=== PATIENT | female | born 1950 | race African-American/Black ===

== ENCOUNTER 2024-04-13 10:19 | Inpatient (IN) | payer OTHER, MEDICAID ==
[~2024-04-13] VITALS: Ht 154.9 cm; Wt 69.4 kg
[~2024-04-13 10:19] MED LIST: AMLO5TAB4 PO; GLIP5TAB22 PO; INSU100I20 SQ; METF-414 PO
[2024-04-13 11:02] LABS: EOSINOPHILS % 0.5 % (0.0-5.0); LYMPHOCYTES % 47.9 % (20.0-50.0); MEAN CORPUSCULAR HEMOGLOBIN 15.2 pg (28.0-32.0); MEAN CORPUSCULAR HGB CONC 27.4 g/dL (31.0-37.0); MEAN CORPUSCULAR VOLUME 55.4 fL (81.0-99.0); MEAN PLATELET VOLUME 8.3 fl (7.4-10.4); MONOCYTES % 5.1 % (2.0-8.0); NEUTROPHILS % 45.5 % (40.0-76.0); PLATELET 352 x1000/uL (130-400); RED BLOOD CELL COUNT 2.57 mill/uL (4.2-5.4); RED CELL DISTRIBUTION WIDTH 23.5 % (11.6-14.6); WHITE BLOOD COUNT 6.7 x1000/uL (4.5-11.0)
[2024-04-13 11:03] LABS: CHLORIDE 109 mEq/L (98-107); SODIUM 139 mEq/L (136-145)
[2024-04-13 11:04] LABS: CALCIUM 9.4 mg/dL (8.7-10.4); CARBON DIOXIDE 20 mEq/L (21-32)
[2024-04-13 11:08] LABS: HEMATOCRIT. 14.3 % (36.0-48.0); HEMOGLOBIN. 3.9 g/dL (12.0-16.0)
[2024-04-13 11:09] LABS: ADD RBC MORPHOLOGY YES; CREATININE 0.7 mg/dL (0.6-1.0); DIFFERENTIAL COMMENT 1; GLUCOSE 137 mg/dL (70-105); UREA NITROGEN BLOOD 14 mg/dL (9-23)
[2024-04-13 11:10] LABS: TROPONIN I HIGH SENSITIVITY 7 ng/L (3.0-34)
[2024-04-13 11:19] LABS: INR 1.1; PROTHROMBIN TIME 11.8 sec (9.6-11.0)
[2024-04-13] MEDS: KETOROLAC 30MG/ML VIAL IV STA (11:20)
[2024-04-13 11:58] LABS: ANISOCYTOSIS 3+; HYPOCHROMASIA 3+; MICROCYTOSIS 3+; PLATELET ESTIMATE NORMAL
[2024-04-13 11:59] LABS: TARGET CELLS 1+; TEAR DROP CELLS 1+
[2024-04-13 12:21] LABS: LACTIC ACID 3.7 mmol/L (0.4-2.0)
[2024-04-13] MEDS ORDERED: MAGNESIUM/ALUMINUM HYDROXIDE/SIMETHICONE 30ML UDC PO PRN (13:00)
[2024-04-13] MEDS ORDERED: DEXTROSE 50% WATER 50ML SYRINGE IV PRN (13:00)
[2024-04-13] MEDS ORDERED: IPRATROPIUM/ALBUTEROL 0.5-3(2.5)MG/3ML NEB HHN PRN (13:00)
[2024-04-13] MEDS ORDERED: ONDANSETRON HCL 4MG/2ML INJ IV PRN (13:00)
[2024-04-13] MEDS ORDERED: ACETAMINOPHEN 325MG TABLET PO PRN (13:00)
[2024-04-13] MEDS ORDERED: GUAIFENESIN 200MG/10ML SUGAR FREE UDC PO PRN (13:00)
[2024-04-13] MEDS: INSULIN LISPRO 100 UNITS/ML SUBCUT SCH (13:20)
[2024-04-13] MEDS: BLOOD SUGAR DIAGNOSTIC STRIP TEST SCH (13:52)
[2024-04-13] MEDS: ACETAMINOPHEN 325MG TABLET PO PRN (14:02)
[2024-04-13] MEDS: SODIUM CHLORIDE 0.9% 1,000 ML IV SCH (15:15)
[2024-04-13 18:27] LABS: CREATINE KINASE 23 IU/L (34-145)
[2024-04-13] MEDS ORDERED: DIATR MEGLU/DIATRIZOATE SOLN 30ML PO NR (19:00)
[2024-04-13] MEDS: FAMOTIDINE 20MG TABLET PO SCH (21:23)
[2024-04-13 21:36] VITALS: BP 140/67; PULSE 82; RESP 22; TEMP 98.2
[2024-04-13 21:44] LABS: LACTATE DEHYDROGENASE 137 IU/L (120-246)
[2024-04-13 22:05] LABS: HEMOGLOBIN 5.9 g/dL (12.0-16.0)
[2024-04-14] VITALS (10 sets, daily range): BP systolic 123–152; BP diastolic 64–98; PULSE 57–84; RESP 16–22; TEMP 97.4–98.8
[2024-04-14 00:29] LABS: MEAN CORPUSCULAR VOLUME 64.6 fL (81.0-99.0); PLATELET 270 x1000/uL (130-400); RED BLOOD CELL COUNT 2.87 mill/uL (4.2-5.4); RED CELL DISTRIBUTION WIDTH 32.9 % (11.6-14.6); WHITE BLOOD COUNT 6.3 x1000/uL (4.5-11.0)
[2024-04-14 00:42] LABS: HEMATOCRIT 18.6 % (36.0-48.0); HEMOGLOBIN 5.8 g/dL (12.0-16.0)
[2024-04-14 00:43] LABS: CREATINE KINASE MB FRACTION 0.9 ng/mL (0.5-3.6); TROPONIN I HIGH SENSITIVITY 22 ng/L (3.0-34)
[2024-04-14 00:52] LABS: CLARITY URINE CLEAR (CLEAR); COLOR URINE YELLOW (YELLOW); GLUCOSE URINE NEGATIVE (NEGATIVE); KETONES URINE NEGATIVE (NEGATIVE); LEUKOCYTE ESTERASE URINE TRACE (NEGATIVE); NITRITE URINE NEGATIVE (NEGATIVE); OCCULT BLOOD URINE NEGATIVE (NEGATIVE); PROTEIN URINE NEGATIVE (NEGATIVE); SPECIFIC GRAVITY URINE 1.015 (1.005-1.030); UROBILINOGEN URINE 0.2 E.U./dL (0.2-1.0)
[2024-04-14 01:02] LABS: HEPATITIS B SURFACE ANTIGEN NEGATIVE (Negative)
[2024-04-14 01:23] LABS: HEPATITIS C AB REACTIVE (Pos) (Negative)
[2024-04-14 04:54] LABS: RBC URINE 0-2 /hpf (0-2); WBC URINE 0-2 /hpf (0-2)
[2024-04-14 04:55] LABS: BACTERIA URINE TRACE; SQUAMOUS EPITHELIAL CELL URINE FEW /lpf (RARE/1+)
[2024-04-14] MEDS: CLONIDINE 0.1MG TABLET PO PRN (05:45)
[2024-04-14 06:14] LABS: HEMATOCRIT. 22.3 % (36.0-48.0); MEAN CORPUSCULAR HEMOGLOBIN 21.8 pg (28.0-32.0); MEAN CORPUSCULAR HGB CONC 32.3 g/dL (31.0-37.0); MEAN CORPUSCULAR VOLUME 67.5 fL (81.0-99.0); MEAN PLATELET VOLUME 9.1 fl (7.4-10.4); PLATELET 250 x1000/uL (130-400); RED BLOOD CELL COUNT 3.31 mill/uL (4.2-5.4); RED CELL DISTRIBUTION WIDTH 32.9 % (11.6-14.6); WHITE BLOOD COUNT 7.6 x1000/uL (4.5-11.0)
[2024-04-14 06:19] LABS: CHLORIDE 112 mEq/L (98-107); POTASSIUM 4.5 mEq/L (3.5-5.1); SODIUM 137 mEq/L (136-145)
[2024-04-14 06:20] LABS: CALCIUM 8.9 mg/dL (8.7-10.4); CARBON DIOXIDE 21 mEq/L (21-32)
[2024-04-14 06:24] LABS: IRON 39 ug/dL (50-170)
[2024-04-14 06:25] LABS: CREATINE KINASE MB FRACTION 0.9 ng/mL (0.5-3.6); CREATININE 0.8 mg/dL (0.6-1.0); GLUCOSE 95 mg/dL (70-105); TROPONIN I HIGH SENSITIVITY 20 ng/L (3.0-34); UREA NITROGEN BLOOD 16 mg/dL (9-23)
[2024-04-14 06:27] LABS: PHOSPHORUS 3.1 mg/dL (2.5-4.9); TOTAL IRON BINDING CAPACITY 295 ug/dl (250-425)
[2024-04-14 06:29] LABS: FOLIC ACID (FOLATE) SERUM 11.87 ng/mL (>5.38); T4 FREE 0.92 ng/dL (0.89-1.76)
[2024-04-14 06:40] LABS: VITAMIN B12 SERUM 315 pg/mL (211-911)
[2024-04-14 06:45] LABS: FERRITIN 2 ng/mL (10-291)
[2024-04-14 06:55] LABS: DIFFERENTIAL COMMENT 1; HEMOGLOBIN. 7.2 g/dL (12.0-16.0)
[2024-04-14 10:13] LABS: ANISOCYTOSIS 4+; HYPOCHROMASIA 3+; MICROCYTOSIS 2+; PLATELET ESTIMATE NORMAL
[2024-04-14 10:14] LABS: TARGET CELLS 1+; TEAR DROP CELLS 2+
[2024-04-14] MEDS: IRON SUCROSE COMPLEX 100 MG/5 ML ML IV NR (12:01)
[2024-04-14] MEDS: MAGNESIUM 2 G PREMIX 50 ML IV NR (16:53)
[2024-04-14 21:50] LABS: CREATINE KINASE MB FRACTION 0.9 ng/mL (0.5-3.6)
[2024-04-15] VITALS (7 sets, daily range): BP systolic 130–146; BP diastolic 56–78; PULSE 60–80; RESP 15–23; TEMP 97.1–98.5
[2024-04-15 07:02] LABS: HEMATOCRIT. 24.7 % (36.0-48.0); HEMOGLOBIN. 7.8 g/dL (12.0-16.0); MEAN CORPUSCULAR HEMOGLOBIN 21.2 pg (28.0-32.0); MEAN CORPUSCULAR HGB CONC 31.5 g/dL (31.0-37.0); MEAN CORPUSCULAR VOLUME 67.3 fL (81.0-99.0); MEAN PLATELET VOLUME 8.7 fl (7.4-10.4); PLATELET 237 x1000/uL (130-400); RED BLOOD CELL COUNT 3.67 mill/uL (4.2-5.4); RED CELL DISTRIBUTION WIDTH 33.5 % (11.6-14.6); WHITE BLOOD COUNT 7.9 x1000/uL (4.5-11.0)
[2024-04-15 07:14] LABS: CARBON DIOXIDE 23 mEq/L (21-32); CHLORIDE 112 mEq/L (98-107); POTASSIUM 4.3 mEq/L (3.5-5.1); SODIUM 141 mEq/L (136-145)
[2024-04-15 07:15] LABS: CALCIUM 9.4 mg/dL (8.7-10.4)
[2024-04-15 07:20] LABS: CREATININE 0.8 mg/dL (0.6-1.0); GLUCOSE 102 mg/dL (70-105); UREA NITROGEN BLOOD 14 mg/dL (9-23)
[2024-04-15 09:48] LABS: DIFFERENTIAL COMMENT 1
[2024-04-15] MEDS: AMLODIPINE 5MG TABLET PO SCH (10:06)
[2024-04-15] MEDS: IRON SUCROSE COMPLEX 100 MG/5 ML ML IV SCH (10:16)
[2024-04-15] MEDS: DIATR MEGLU/DIATRIZOATE SOLN 30ML PO NR (13:30)
[2024-04-15] MEDS ORDERED: IOHEXOL-300 100 ML BOTTLE ONE (17:07)
[2024-04-15 18:32] LABS: ANISOCYTOSIS 3+; HYPOCHROMASIA 2+; MICROCYTOSIS 3+; PLATELET ESTIMATE NORMAL
[2024-04-16] VITALS: BP 139/69; PULSE 79; RESP 20; TEMP 96.9
[2024-04-16 04:00] VITALS: BP 162/84; PULSE 66; RESP 20; TEMP 97.2
[2024-04-16 07:39] LABS: BASOPHILS % 0.7 % (0.0-2.0); EOSINOPHILS % 1.2 % (0.0-5.0); HEMOGLOBIN. 7.6 g/dL (12.0-16.0); LYMPHOCYTES % 46.2 % (20.0-50.0); MEAN CORPUSCULAR HEMOGLOBIN 21.9 pg (28.0-32.0); MEAN CORPUSCULAR HGB CONC 31.8 g/dL (31.0-37.0); MEAN CORPUSCULAR VOLUME 68.9 fL (81.0-99.0); NEUTROPHILS % 44.9 % (40.0-76.0); PLATELET 209 x1000/uL (130-400); RED BLOOD CELL COUNT 3.48 mill/uL (4.2-5.4); RED CELL DISTRIBUTION WIDTH 34.4 % (11.6-14.6); WHITE BLOOD COUNT 7.5 x1000/uL (4.5-11.0)
[2024-04-16 07:41] LABS: CHLORIDE 114 mEq/L (98-107); POTASSIUM 4.3 mEq/L (3.5-5.1); SODIUM 141 mEq/L (136-145)
[2024-04-16 07:42] LABS: CALCIUM 9.1 mg/dL (8.7-10.4); CARBON DIOXIDE 22 mEq/L (21-32)
[2024-04-16 07:47] LABS: CREATININE 0.8 mg/dL (0.6-1.0); GLUCOSE 129 mg/dL (70-105); UREA NITROGEN BLOOD 12 mg/dL (9-23)
[2024-04-16 08:00] VITALS: BP 155/71; PULSE 77; RESP 22; TEMP 98
[2024-04-16 08:56] LABS: DIFFERENTIAL COMMENT 1
[2024-04-16] MEDS: DOCUSATE SODIUM 100MG CAPSULE PO PRN (09:08)
[2024-04-16 12:00] VITALS: BP 146/73; PULSE 66; RESP 16; TEMP 98
[2024-04-16 14:19] LABS: ADD RBC MORPHOLOGY YES
[2024-04-16 14:20] LABS: PLATELET ESTIMATE NORMAL
[2024-04-16 14:21] LABS: ANISOCYTOSIS 4+; HYPOCHROMASIA 2+; TEAR DROP CELLS FEW
[2024-04-16 14:23] LABS: MICROCYTOSIS 3+
[2024-04-16] MEDS ORDERED: FERR325T6 MT (14:25)
[2024-04-16 15:22] VITALS: BP 146/73; PULSE 66; TEMP 98; O2SAT 100
== END 2024-04-16 18:39 | disposition home or self-care (01) | DRG 812 ==
LOC: ER 10:19 → 5WST 12:08 → 3WST 20:54
PROVIDERS: ADMIT Internal Medicine; ATTEND Internal Medicine
PROC: 30233N1 Transfusion of Nonautologous Red Blood Cells into Peripheral Vein, Percutaneous Approach (ICD-10-PCS; principal; 2024-04-13)
DX: D50.9 Iron deficiency anemia, unspecified (principal); E87.20 Acidosis, unspecified; J84.9 Interstitial pulmonary disease, unspecified; E11.40 Type 2 diabetes mellitus with diabetic neuropathy, unspecified; R63.4 Abnormal weight loss; B19.20 Unspecified viral hepatitis C without hepatic coma; I08.0 Rheumatic disorders of both mitral and aortic valves; I10 Essential (primary) hypertension; R07.9 Chest pain, unspecified; I45.10 Unspecified right bundle-branch block; E83.42 Hypomagnesemia; N28.1 Cyst of kidney, acquired; F17.210 Nicotine dependence, cigarettes, uncomplicated; Z83.3 Family history of diabetes mellitus; Z79.84 Long term (current) use of oral hypoglycemic drugs
CPT/HCPCS: 36415; 71045; 71260; 74177; 80048; 81003; 82270; 82550; 82553; 82607; 82728; 82746; 82962; 83036; 83540; 83550; 83605; 83615; 83735; 84100; 84145; 84439; 84484; 85014; 85018; 85025; 85027; 85044; 86705; 86850; 86900; 86920; 87015; 87045; 87177; 87209; 87340; 87427; 87449; 87493; 89055; 93005; 93306; 93970; 97161; 97166; 99291; A6261; C1893; J1885; J3475; J7030; P9016; Q9963; Q9967